=== PATIENT | female | born 1950 | race Caucasian/White ===

== ENCOUNTER → 2017-02-21 | Outpatient (CLI) | payer OTHER, MEDICARE | LOC: BMCIMAGING 14:34 | PROVIDERS: ATTEND Internal Medicine Rheumatology | DX: M18.0 Bilateral primary osteoarthritis of first carpometacarpal joints (principal); M24.675 Ankylosis, left foot; M19.041 Primary osteoarthritis, right hand; M19.042 Primary osteoarthritis, left hand; Z98.890 Other specified postprocedural states; M25.50 Pain in unspecified joint; R20.0 Anesthesia of skin | CPT/HCPCS: 82607-90; 86235-90 ==